=== PATIENT | male | born 1960 | race Two or more races ===

== ENCOUNTER 2021-06-16 06:36 | Inpatient (IN) | payer OTHER ==
[~2021-06-16] VITALS: Ht 175.3 cm; Wt 136.1 kg
[2021-06-16] MEDS ORDERED: TOPROL XL100 M1 (07:10)
[2021-06-16] MEDS ORDERED: LIPITOR40 M1 (07:11)
[2021-06-16] MEDS ORDERED: FARXIGA5 MG (07:11)
[2021-06-16] MEDS ORDERED: ATACAND4 MG (07:11)
[2021-06-16] MEDS ORDERED: LASIX40 MG (07:11)
[2021-06-16] MEDS ORDERED: PROTONIX40 MG (07:12)
[2021-06-16] MEDS ORDERED: JANTOVEN2.5 MG (07:12)
[2021-06-16] MEDS ORDERED: CARAFATE1 GM/10 ML (07:12)
== END 2021-07-25 17:57 | disposition home or self-care (01) | DRG 853 ==
LOC: ER 06:36 → MEDJ 11:37
PROVIDERS: ADMIT Internal Medicine; ATTEND Internal Medicine
PROC: 4A12X4Z Monitoring of Cardiac Electrical Activity, External Approach (ICD-10-PCS; 2021-06-21)
PROC: 0HBHXZZ Excision of Right Upper Leg Skin, External Approach (ICD-10-PCS; 2021-06-21)
PROC: 30233N1 Transfusion of Nonautologous Red Blood Cells into Peripheral Vein, Percutaneous Approach (ICD-10-PCS; 2021-06-22)
PROC: 0JBL0ZZ Excision of Right Upper Leg Subcutaneous Tissue and Fascia, Open Approach (ICD-10-PCS; principal; 2021-06-29)
PROC: 0JH63XZ Insertion of Tunneled Vascular Access Device into Chest Subcutaneous Tissue and Fascia, Percutaneous Approach (ICD-10-PCS; 2021-06-30)
PROC: 02H633Z Insertion of Infusion Device into Right Atrium, Percutaneous Approach (ICD-10-PCS; 2021-06-30)
PROC: 5A1D70Z Performance of Urinary Filtration, Intermittent, Less than 6 Hours Per Day (ICD-10-PCS; 2021-07-01)
PROC: 3E0F7SF Introduction of Other Gas into Respiratory Tract, Via Natural or Artificial Opening (ICD-10-PCS; 2021-07-01)
PROC: 8E0ZXY6 Isolation (ICD-10-PCS; 2021-07-18)
DX: A41.9 Sepsis, unspecified organism (principal); L89.323 Pressure ulcer of left buttock, stage 3; L89.313 Pressure ulcer of right buttock, stage 3; N18.6 End stage renal disease; I50.23 Acute on chronic systolic (congestive) heart failure; N17.8 Other acute kidney failure; I13.2 Hypertensive heart and chronic kidney disease with heart failure and with stage 5 chronic kidney disease, or end stage renal disease; N39.0 Urinary tract infection, site not specified; Z99.2 Dependence on renal dialysis; I27.20 Pulmonary hypertension, unspecified; Z95.810 Presence of automatic (implantable) cardiac defibrillator; D63.1 Anemia in chronic kidney disease; I25.10 Atherosclerotic heart disease of native coronary artery without angina pectoris; Z20.822 Contact with and (suspected) exposure to COVID-19; B96.5 Pseudomonas (aeruginosa) (mallei) (pseudomallei) as the cause of diseases classified elsewhere; B95.61 Methicillin susceptible Staphylococcus aureus infection as the cause of diseases classified elsewhere

== ENCOUNTER 2021-08-22 13:21 | Inpatient (IN) | payer OTHER ==
[~2021-08-22] VITALS: Ht 175.3 cm; Wt 113.4 kg
[~2021-08-22 13:21] MED LIST: ATACAND4 MG; CARAFATE1 GM/10 ML; FARXIGA5 MG; JANTOVEN2.5 MG; LASIX40 MG; LIPITOR40 M1; PROTONIX40 MG; TOPROL XL100 M1
== END 2021-08-24 11:04 | disposition expired | DRG 683 ==
LOC: ER 13:21 → SURH 22:11 → SEC-K 22:11 → SURH 08-23 01:36
PROVIDERS: ADMIT Internal Medicine; ATTEND Internal Medicine
PROC: 4A12X4Z Monitoring of Cardiac Electrical Activity, External Approach (ICD-10-PCS; principal; 2021-08-23)
DX: N17.8 Other acute kidney failure (principal); I50.22 Chronic systolic (congestive) heart failure; D68.32 Hemorrhagic disorder due to extrinsic circulating anticoagulants; Z74.01 Bed confinement status; I11.0 Hypertensive heart disease with heart failure; I50.84 End stage heart failure; I25.5 Ischemic cardiomyopathy; Z95.810 Presence of automatic (implantable) cardiac defibrillator; I48.91 Unspecified atrial fibrillation; Z79.01 Long term (current) use of anticoagulants; R57.1 Hypovolemic shock; R57.0 Cardiogenic shock; Z66 Do not resuscitate; K06.8 Other specified disorders of gingiva and edentulous alveolar ridge; T45.515A Adverse effect of anticoagulants, initial encounter